=== PATIENT | male | born 1990 | race Caucasian/White ===

== ENCOUNTER 2016-09-18 02:19 | Emergency (ER) | payer OTHER ==
[~2016-09-18] VITALS: Ht 185.4 cm; Wt 100.0 kg
[2016-09-18 02:23] VITALS: BP 140/80; PULSE 76; RESP 18; O2SAT 93
--- NOTE | 2016-09-18 02:31 | ED.REPORT ---
HPI-General Illness Date of Service September 18, 2016 ED Provider: Dr. Golden Ramos M.D. A 26 year old male with a history of asthma presents to the ED with shortness of breath onset 2330 this evening. The patient believes he is experiencing an asthma attack, but he left his inhaler at work today. He denies cough or other symptoms. Nursing Notes Stated Complaint: DIFFICULTY BREATHING/POSS ASTHMA ATTACK Chief Complaint: Respiratory Complaints Nursing Notes Reviewed: Yes Allergies: Coded Allergies: No Known Allergies (Unverified Allergy, Unknown, 09/18/16) Scheduled Prednisone (PredniSONE) 20 Mg Tablet 60 MG PO DAILY General Time Seen by MD: 02:31 Chief Complaint Breathing problem Hx Obtained From: Patient Arrived By: Walk-in Sudden in Onset?: Yes Onset Occurred: 1 - 4 hours ago Symptom Duration: Since onset Severity: Current: No pain currently Severity: Maximum: No pain Pertinent Negative: Relieved by nothing Context Related History: Reports Asthma Recent Healthcare: No recent doctor visit Similar Sx Previous: Yes Past Medical History Past Medical History Asthma Past Surgical History None reported Smoking History Unknown if Ever Smoker Social History Drug Use: THC Other Social History: Good social support Ambulatory Status Independent Review of Systems Full Review of Systems Constitutional: Denies: Fever Respiratory: Reports: Shortness of breath, Denies: Non-productive cough GI: Denies: Diarrhea, Vomiting Complete sys rev & neg: except as marked. Physical Exam Vital Signs Vital Signs Date Time Temp Pulse Resp B/P Pulse Ox O2 Delivery O2 Flow Rate FiO2 09/18/16 03:14 36.6 81 16 140/80 94 Room Air 09/18/16 02:59 67 16 98 Room Air 09/18/16 02:23 36.6 76 18 140/80 93 Room Air Initial VS: Reviewed Head / Eyes: Atraumatic, Normocephalic ENT: Conjunctiva normal, No scleral icterus Neck: Supple, Full range of motion Cardiovascular: Regular rate & rhythm, Heart sounds normal Skin: Warm, Dry, No cyanosis Neurologic: Alert, Oriented, Nonfocal Psychiatric: Mood/affect normal, Behavior normal, Normal thought content General/Constitutional: Awake, Alert Smells of marijuana Respiratory / Chest: Breath sounds = bilat, No rales, No wheezing Tight cough Breathing quickly and at top of respiratory cycle Re-Eval/Medical Decision Med Decision/Clinical Course 26-year-old with asthma presents with asthma symptoms, accompanied by a strong odor of marijuana smoke. He says he has not smoked for many hours. He is improved after nebulizer here, and is provided with a brief course of prednisone, as well as the albuterol puffer. He is discharged in stable condition, admonished to obtain his cannabinoids via consumables rather than smoked marijuana. He says he will take that under advisement. Time of Eval: 03:00 Patient Status: Condition improved Re-Evaluation/Progress Note: Discussed with patient physical exam findings, diagnosis, and plan for discharge. Follow-up and return to the ER instructions given. Patient agrees with plan for care and all questions were addressed. Counseled Regarding: Diagnosis, Need for follow-up, When/why to return to ED Discharge & Departure Shift Change Sign-Out Response to Therapy: Improved Primary Impression: Asthma Asthma severity: mild persistent Asthma complication type: with acute exacerbation Qualified Code: J45.31 - Mild persistent asthma with (acute) exacerbation Disposition: Home Discharge Condition All VS Reviewed: Yes Condition: Improved Patient Instructions: Asthma (ED) Additional Instructions: Prednisone three tabs daily for four days. Albuterol two puffs every four hours as needed for cough or wheeze. Use spacer always with the albuterol. Follow-up with your doctor in the office. Review should probably prefer consumables to smokables. Return if any immediate issues over the weekend. Referrals: [facility] Scribe Attestation Portions of this note were transcribed by Suyapa Bruce. I, Dr. Ramos, personally performed the history, physical exam, and medical decision-making; I reviewed and confirmed the accuracy of the information in the transcribed note. Signed by: ePnny Huizar, 09/18/2016, 05:00 copies to: [facility] Golden Ramos MD September 18, 2016 02:31 SUYAPA BRUCE September 18, 2016 02:49
[2016-09-18] MEDS ORDERED: Dexamethasone 20 mg/2 mL Oral Solution PO ONE (02:50)
[2016-09-18] MEDS ORDERED: Albuterol-Ipratropium 3 mL Inhalation Solution NEB ONE (02:50)
[2016-09-18] MEDS ORDERED: Albuterol HFA 200 Puff Inhaler (Vent Pts Only) INHALATION PRN (02:50)
[2016-09-18 02:59] VITALS: PULSE 67; RESP 16; O2SAT 98
[2016-09-18] MEDS ORDERED: PRE20 PO (03:02)
[2016-09-18 03:14] VITALS: BP 140/80; PULSE 81; RESP 16; O2SAT 94
== END 2016-09-18 03:19 | disposition home or self-care (01) ==
LOC: SED 02:19
DX: J45.31 Mild persistent asthma with (acute) exacerbation (principal)
CPT/HCPCS: 99284; J7620